=== PATIENT | female | born 1955 | race Caucasian/White ===

== ENCOUNTER 2021-12-13 17:05 | Inpatient (IN) | payer OTHER ==
[2021-12-13] MEDS ORDERED: VANCOMYCIN 1 GM in D5W (PRE-DOCKED) 1,000 MG/250 ML IVPB ONE (17:54)
[2021-12-13 18:26] LABS: HEMATOCRIT 36.8 % (32.4-45.2); MCH 32.6 pg (25.7-33.7); MCHC 35.3 g/dl (32.0-36.0); MEAN CELL VOLUME 92.2 fl (80-96); MEAN PLT VOLUME 8.3 fl (7.5-11.1); RBC 3.99 10^6/uL (3.60-5.2); RDW 13.5 % (11.6-15.6)
[2021-12-13] MEDS ORDERED: VANCOMYCIN 1,000 MG VIAL (RESTRICTED TO ID ONLY) ONE (18:28)
[2021-12-13 18:49] LABS: ALBUMIN 4.1 g/dl (3.4-5.0); BILIRUBIN,TOTAL 0.8 mg/dl (0.2-1); CALCIUM 9.5 mg/dl (8.5-10); TOT PROT 6.8 g/dl (6.4-8.2)
[2021-12-13 18:56] LABS: PLATELET ESTIMATE ADEQUATE
[2021-12-13 19:00] LABS: EPITHELIAL CELLS RARE /hpf
[2021-12-13] MEDS ORDERED: ACETAMINOPHEN 325 MG TABLET (FP) PO PRN (23:12)
[2021-12-13 23:40] VITALS: BMI 21.3
[2021-12-14] MEDS: MAGNESIUM OXIDE 400 MG TABLET (FP) PO SCH ×2 (03:42→21:31)
[2021-12-14] MEDS ORDERED: VANCOMYCIN 1,000 MG in DEXTROSE 5%-WATER - 250 ML IVPB SCH (04:15)
[2021-12-14 08:20] LABS: CREATININE 0.9 mg/dl (0.55-1.3)
[2021-12-14] MEDS: VANCOMYCIN 1 GRAM (PRE-DOCKED) 1,000 MG/250 ML BAG IVPB SCH ×2 (09:08→19:22)
[2021-12-14 10:46] LABS: HEMATOCRIT 37.3 % (32.4-45.2); HEMOGLOBIN 12.3 GM/dL (10.7-15.3); MCH 30.2 pg (25.7-33.7); MEAN CELL VOLUME 91.5 fl (80-96); MEAN PLT VOLUME 9.2 fl (7.5-11.1); PLATELET COUNT 177 10^3/uL (134-434); RBC 4.08 M/mm3 (3.60-5.2); RDW 12.6 % (11.6-15.6); WHITE BLOOD COUNT 4.7 K/mm3 (4.0-10.0)
[2021-12-14] MEDS: BACITRACIN 15 GM TUBE TOPICAL OINTMENT TP SCH (11:02)
[2021-12-14] MEDS: TAMOXIFEN CITRATE 10 MG TABLET PO SCH (11:02)
[2021-12-14] MEDS: LACTOBACILLUS ACIDOPHILUS 1 TABLET PO SCH (11:03)
[2021-12-15] MEDS ORDERED: VANCOMYCIN 1,000 MG in DEXTROSE 5%-WATER - 250 ML IVPB SCH (07:30)
[2021-12-15] MEDS ORDERED: VANCOMYCIN 1,000 MG in DEXTROSE 5%-WATER - 250 ML IVPB ONE (09:15)
[2021-12-15 10:17] LABS: HEMATOCRIT 38.4 % (32.4-45.2); HEMOGLOBIN 13.4 G/dL (10.7-15.3); MCH 32.4 pg (25.7-33.7); MCHC 34.9 g/dl (32.0-36.0); MEAN CELL VOLUME 92.7 fl (80-96); MEAN PLT VOLUME 8.8 fl (7.5-11.1); PLATELET COUNT 182.1 10^3/uL (134-434); RBC 4.14 10^6/uL (3.60-5.2); RDW 13.3 % (11.6-15.6); WHITE BLOOD COUNT 5.9 10^3/uL (4.0-10.8)
[2021-12-15 10:20] LABS: ALBUMIN 3.4 g/dl (3.4-5.0); BILIRUBIN,TOTAL 0.7 mg/dl (0.2-1); CALCIUM 9.2 mg/dl (8.5-10); CREATININE 0.9 mg/dl (0.55-1.3); TOT PROT 5.9 g/dl (6.4-8.2)
[2021-12-15] MEDS: TAMOXIFEN CITRATE 10 MG TABLET PO SCH (10:32)
[2021-12-15] MEDS: LACTOBACILLUS ACIDOPHILUS 1 TABLET PO SCH (10:32)
[2021-12-15] MEDS: BACITRACIN 15 GM TUBE TOPICAL OINTMENT TP SCH (10:33)
[2021-12-15 11:37] LABS: PLATELET ESTIMATE ADEQUATE
[2021-12-15] MEDS: MAGNESIUM OXIDE 400 MG TABLET (FP) PO SCH (22:08)
[2021-12-15] MEDS: VANCOMYCIN 1 GRAM (PRE-DOCKED) 1 GM/250 ML BAG IVPB SCH (23:05)
[2021-12-16] MEDS: TAMOXIFEN CITRATE 10 MG TABLET PO SCH (09:11)
[2021-12-16] MEDS: LACTOBACILLUS ACIDOPHILUS 1 TABLET PO SCH (09:12)
[2021-12-16] MEDS: BACITRACIN 15 GM TUBE TOPICAL OINTMENT TP SCH (09:12)
[2021-12-16] MEDS: VANCOMYCIN 1 GRAM (PRE-DOCKED) 1 GM/250 ML BAG IVPB SCH ×2 (11:19→23:10)
[2021-12-16] MEDS: MAGNESIUM OXIDE 400 MG TABLET (FP) PO SCH (21:11)
[2021-12-17] MEDS: LACTOBACILLUS ACIDOPHILUS 1 TABLET PO SCH (09:32)
[2021-12-17] MEDS: TAMOXIFEN CITRATE 10 MG TABLET PO SCH (09:32)
[2021-12-17] MEDS ORDERED: ENOXAPARIN NA (PORCINE) 40 MG/0.4 ML DISP.SYRIN SQ SCH (10:15)
[2021-12-17] MEDS: VANCOMYCIN 1 GRAM (PRE-DOCKED) 1 GM/250 ML BAG IVPB SCH ×2 (11:40→23:03)
[2021-12-17 20:21] VITALS: RESP 16
[2021-12-17] MEDS: MAGNESIUM OXIDE 400 MG TABLET (FP) PO SCH (21:29)
[2021-12-18 06:53] VITALS: BP 109/58; PULSE 57; TEMP 98.1
[2021-12-18] MEDS: LACTOBACILLUS ACIDOPHILUS 1 TABLET PO SCH (09:24)
[2021-12-18] MEDS: TAMOXIFEN CITRATE 10 MG TABLET PO SCH (09:24)
[2021-12-18] MEDS: BACITRACIN 15 GM TUBE TOPICAL OINTMENT TP SCH (09:30)
[2021-12-18] MEDS ORDERED: ASPIRIN COATED 81 MG TABLET.EC PO SCH (10:00)
[2021-12-18] MEDS: VANCOMYCIN 1 GRAM (PRE-DOCKED) 1 GM/250 ML BAG IVPB SCH ×2 (10:00→16:27)
[2021-12-18] MEDS ORDERED: ENOXAPARIN NA (PORCINE) 40 MG/0.4 ML DISP.SYRIN SQ SCH (10:00)
== END 2021-12-18 18:03 | disposition home or self-care (01) | DRG 603 ==
LOC: FER 17:05 → FM/S 18:31 → OBSVTOIN 12-15 13:47
PROVIDERS: ADMIT Internal Medicine; ATTEND Nurse Practitioner Family
DX: L03.116 Cellulitis of left lower limb (principal); M81.0 Age-related osteoporosis without current pathological fracture; K58.9 Irritable bowel syndrome, unspecified; Z22.322 Carrier or suspected carrier of Methicillin resistant Staphylococcus aureus; W18.39XA Other fall on same level, initial encounter; Y92.480 Sidewalk as the place of occurrence of the external cause; Z85.3 Personal history of malignant neoplasm of breast
CPT/HCPCS: 36415; 71045-TC-FY; 73723-LT; 80048; 80053; 81003; 81015; 85025; 85027; 86140; 87040; 87086; 93005; 99285-25; A9579; C1887; C9803-CS; G0378; G0480; U0003; U0005